=== PATIENT | male | born 1990 | race Caucasian/White ===

== ENCOUNTER 2019-11-21 17:26 | Inpatient (IN) | payer OTHER ==
[~2019-11-21] VITALS: Ht 185.4 cm; Wt 90.7 kg
[2019-11-21 17:26] VITALS: BP 135/97
[2019-11-21] MEDS ORDERED: SOLU-MEDROL ONE (17:31)
[2019-11-21] MEDS ORDERED: EPINEPHrine ONE (17:32)
[2019-11-21] MEDS ORDERED: MAGNESIUM SULFATE 50 ML IV ONE (17:32)
[2019-11-21] MEDS ORDERED: ATROVENT IH ONE (17:33)
[2019-11-21] MEDS ORDERED: DECADRON ONE (17:33)
[2019-11-21] MEDS ORDERED: ATROVENT IH STA (17:35)
[2019-11-21] MEDS ORDERED: VENTOLIN IH STA ×2 (17:35)
[2019-11-21] MEDS ORDERED: EPINEPHrine SQ STA (17:35)
[2019-11-21] MEDS ORDERED: MAGNESIUM SULFATE 50 ML IV STA (17:35)
[2019-11-21] MEDS ORDERED: DECADRON IH STA (17:35)
[2019-11-21] MEDS ORDERED: SOLU-MEDROL IV STA (17:35)
[2019-11-21 17:48] LABS: BASOPHIL % 0.2 % (0.0-0.2); EOSINOPHIL # 0.1 10^3/uL (0.0-0.2); EOSINOPHIL % 0.9 % (0.0-5.0); LYMPHOCYTES # 2.67 10^3/uL1 (1.0-4.8); LYMPHOCYTES % 46.7 % (24.0-44.0); MEAN CORP HGB 29.1 pg (26-34); MONOCYTES # 0.4 10^3/uL (0.3-0.8); MONOCYTES % 7.5 % (5.0-12.0); NEUTROPHIL # 2.6 10^3/uL (1.8-7.7); NEUTROPHILS % 44.5 % (41.0-85.0); PLATELET COUNT 313 10^3/uL (150-400)
[2019-11-21] MEDS ORDERED: NS 1000ML 1,000 ML IV STA (17:48)
--- NOTE | 2019-11-21 17:48 | ER.PDOC ---
General Chief Complaint: Dyspnea/Respdistress Stated Complaint: ASTHMA ATTACK Time seen by MD: 17:45 Source: patient Exam Limitations: no limitations History of Present Illness Initial Comments Asthma attack, patient having difficulty breathing and wheezing for past few days worse today. Severity: severe Initiating Event: enviromental allergy Associated Symptoms: trouble breathing, shortness of breath, cough, chest t ightness Prior symptoms/Treatment: Similar symptoms previous Allergies: Coded Allergies: No Known Allergies (Unverified , 11/21/19) Past Medical History Medical History: asthma Social History Alcohol Use: occassionally Drug Use: marijuana Constitutional: no symptoms reported EENTM: no symptoms reported Respiratory: see HPI Cardiovascular: no symptoms reported Gastrointestinal: no symptoms reported Genitourinary: no symptoms reported All Other Systems: Reviewed and Negative Physical Exam General Appearance: alert, severe distress EENT: eyes nml, no nystagmus, ENT nml inspection, pharynx nml Neck: nml inspection, non-tender Respiratory: chest non-tender, respiratory distress, accessory muscle use Cardiovascular: Normal Peripheral Pulses, Regular Rate, Rhythm, No Edema, No Gallop, No JVD, No Murmur, Tachycardia Abdomen: non-tender, no organomegaly Skin: Normal Color, Warm/Dry Extremities: non-tender, nml ROM, no pedal edema NEURO/PSYCH: oriented x 3, CN's nml as tested, motor nml, sensation nml, mood/affect nml Results/Orders Results/Orders Orders - KENNEDI BRAVO MD Albuterol Sulfate (Ventolin) (11/21/19 17:35) Albuterol Sulfate (Ventolin) (11/21/19 17:35) Ipratropium [place] (Atrovent) (11/21/19 17:35) Dexamethasone Sodium Phosphate (Decadron (11/21/19 17:35) Methylprednisolone Sod Succ (Solu-Medrol (11/21/19 17:35) Magnesium 2 Gm/Water 50ml (Magnesium Sul (11/21/19 17:35) Epinephrine (Epinephrine) (11/21/19 17:35) Cbc With Auto Diff (11/21/19 17:35) Comprehensive Metabolic Panel (11/21/19 17:35) Creatine Kinase (11/21/19 17:35) Creatine Kinase Mb (9/26/20 17:35) Troponin I (11/21/19 17:35) Xr Chest 1v (11/21/19 17:35) Ekg-Routine (11/21/19 17:35) Arterial Blood Gas (11/21/19 17:35) Probnp B-Type Pci Security Consultant (11/21/19 17:44) D-Dimer (11/21/19 17:44) PT (11/21/19 17:44) Partial Thromboplastin Time. (11/21/19 17:44) Vital Signs Date Time Temp Pulse Resp B/P (MAP) Pulse Ox O2 Delivery O2 Flow Rate FiO2 11/21/19 17:26 98.2 154 20 86 EKG/XRAY/CT/US EKG Comments: Sinus tachycardia XRAY: chest (No active disease) ER DEPARTURE Departure Time of Disposition: 19:13 Disposition: 09 ADMITTED INPATIENT Impression: Primary Impression: Asthma with status asthmaticus Additional Impressions: Acute respiratory failure Dyspnea Condition: Stable Duration or Time Spent with Pa: 60 min Justification of Admit/Observ Is this patient coming directl: No *Level of Care/Services Provid: ER Admit Criteria Met: YES Justification Content JUSTIFICATION FOR ADMISSION Instructions 1. Open link in ED01 Browser. [email or web address] 2. Copy and paste data needed to meet the Admit Criteria. 3. Modify and document the needful data to meet the Admit Criteria. Critical Care Note Total Time (mins): 60 Problem Qualifiers Primary Impression: Asthma with status asthmaticus Asthma severity: moderate Asthma persistence: persistent Qualified Codes: J45.42 - Moderate persistent asthma with status asthmaticus Additional Impressions: Acute respiratory failure Respiratory failure complication: hypoxia Qualified Codes: J96.01 - Acute respiratory failure with hypoxia Dyspnea Dyspnea type: acute respiratory distress Qualified Codes: R06.03 - Acute respiratory distress KENNEDI BRAVO MD Nov 21, 2019 17:48
--- NOTE | 2019-11-21 17:56 | PCM.EKG ---
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
[2019-11-21 18:08] LABS: ABG PCO2 40.5 mmHg (35.0-45.0); ABG PH 7.354 (7.350-7.450); BE(B) -3.2 mmol/L (-2.0-2.0); HCO3act 22.1 mmol/L (22.0-26.0); pO2 56.3 mmHg (80.0-100.0)
[2019-11-21 18:21] LABS: ALANINE AMINOTRANSFERASE(ML) 39 U/L (12-78); ALKALINE PHOSPHATASE 89 U/L (50-136); ASPARTATE AMINO TRANSFERASE 27 U/L (0-35); CALCIUM 9.1 mg/dL (8.4-10.5); CARBON DIOXIDE 27.1 mmol/L (20.0-32); GLUCOSE 131 mg/dL (70-110)
--- NOTE | 2019-11-21 18:48 | DIREP ---
PROCEDURE:CHEST 1 VIEW COMPARISON:None. INDICATIONS:Shortness of breath FINDINGS: LUNGS/PLEURA:Mild and diffuse interstitial prominence both lungs. No consolidation or effusion detected. No pneumothorax VASCULATURE:Normal. Unremarkable pulmonary vasculature. CARDIAC:Normal. No cardiac silhouette abnormality or cardiomegaly. MEDIASTINUM:Normal. No visible mass or adenopathy. BONES:Normal. No fracture or visible bony lesion. OTHER:Negative. CONCLUSION:Mild interstitial prominence both lungs, no focal infiltrate or effusion. No pneumothorax. Dictated by: Hernan Arrieta MD on 11/21/2019 at 06:45 PM
--- NOTE | 2019-11-21 18:53 | NUR ---
MAG SULFATE PT HAD 50ML MAG SULFATE HUNG PRIOR TO THIS NURSE'S ARRIVAL. THE MED WAS NOT ACKNOWLEDGED BY THE PREVIOUS SHIFT. ONE LITER OF NS WAS ALSO INITIATED PRIOR TO THIS SHIFT AND NOT ACKNOWLEDGED. THIS NURSE SALINE LOCKED THE PT AT THIS TIME AFTER SEEING THE MEDS HAVE BEEN INFUSED.
[2019-11-21 19:03] VITALS: BP 110/68
[2019-11-21] MEDS ORDERED: HNS 1000ML/KCL 20MEQ 1,000 ML IV STA (19:21)
[2019-11-21] MEDS ORDERED: HNS 1000ML/KCL 20MEQ 1,000 ML ONE (20:55)
[2019-11-21] MEDS ORDERED: COMBIVENT RESPIMAT 20-100 MCG IH PRN (21:00)
[2019-11-21] MEDS: DUO 0.5-3(2.5) MG/3 ML IH SCH (21:00)
--- NOTE | 2019-11-21 21:05 | NUR ---
MEDSURG PT TAKEN TO MEDSURG VIA WHEELCHAIR AT THIS TIME. REPORT GIVEN TO YANIQUE SEWELL.
[2019-11-21 21:20] VITALS: BP 115/72
--- NOTE | 2019-11-21 21:30 | NUR ---
Received pt from Ed via wheel chair. 02 on 3 liters.02 sats 95%. Pt placed on cont pulse ox. Admission complete. Medications given as ordered. No distress noted at this time
[2019-11-21] MEDS ORDERED: SOLU-MEDROL IV SCH (22:00)
[2019-11-21] MEDS ORDERED: TYLENOL PO PRN (23:00)
[2019-11-21] MEDS: SYMBICORT 160-4.5 MCG INHALER IH SCH (23:00)
[2019-11-21] MEDS: NS 1000ML 1,000 ML IV SCH (23:00)
[2019-11-21] MEDS ORDERED: KCL 20MEQ/100ML 200 ML IV SCH (23:00)
[2019-11-21] MEDS ORDERED: ULTRAM PO PRN (23:00)
--- NOTE | 2019-11-22 00:20 | PCM.HP ---
HISTORY & PHYSICAL HISTORY & PHYSICAL DATE OF ADMISSION: 11/21/19 TIME: 10:15pm CHIEF COMPLAINT: SOB, cough, and wheezing HISTORY OF PRESENT ILLNESS: Mr Murcia is a 29yo WM who presents to [facility] ED complaining of worsening SOB, cough (productive of yellowish-white sputum), and wheezing for the past several days. Patient states that he ran out of his home Advair 3 weeks ago and has been using his Albuterol inhaler more frequently, but it just "has not been working" to control his symptoms. Patient also states that he's been trying to quit smoking, but had a "relapse" 2-3 days ago in which he "binge smoked" 1.5-2 packs in 2 days. Patient feels that this is what triggered his current asthma attack. Upon arrival here to the ED, patient was noted to be in "severe respiratory distress" with labored breathing, nasal flaring, pursed lips, tachypneic, and hypoxic (O2 sats 60% RA per EMS) with usage of his accessory muscles of respiration. Patient was started on aggressive Respiratory Protocol with Breathing Treatments, supplemental oxygen, and steroids. Per my discussion with the ED physician, patient was given Heliox Tx and due to his increased work of breathing with clinical deterioration, there was consideration for possible intubation of the patient. However, he improved with the Heliox Tx and was able to be weaned down on his oxygen requirements. Currently at this time, patient is feeling "much better" with less respiratory distress on 3L O2 via NC. He reports no further chest "tightness" and denies having any fever or chills. PAST MEDICAL HISTORY: Asthma (Dx'd when Pt was a child) PAST SURGICAL HISTORY: Deviated Nasal Septum Surgery with Removal of a Nasal Polyp, Tibial Plateau Fracture Repair in 2017 SOCIAL HISTORY: Pt previously smoked 1ppd for 8 years, but has been trying to quit since last month. He drinks alcohol maybe 2x per week, and also admits to using marijuana maybe 2x per week. Patient currently works for the [employer]. FAMILY HISTORY: Mother alive at age 54 with Diabetes. Father alive at age 59 with HTN, obesity, and Hypothyroidism. ALLERGIES: NKDA HOME MEDICATIONS: See Home Med Rec REVIEW OF SYSTEMS: See HPI above. All other ROS negative including constitutional, eyes, ears, nose, throat, respiratory, cardiovascular, gastrointestinal, genitourinary, musculoskeletal, skin, neurological, psychiatric, and lymphatic. PHYSICAL EXAMINATION: VITAL SIGNS: T 98.2, HR 94 (was 154), RR 20 (was 40), BP 110/68, O2 sat 94% 3L NC GENERAL: Resting comfortably in NAD. No family or friends present at bedside. HEENT: NC/AT. PERRLA. EOMI. MMM. Neck is supple. LUNGS: BL diffuse expiratory wheezes. Tachypneic with minimal usage of his accessory muscles of respiration. HEART: Normal S1S2. No murmurs, rubs, gallops, or thrills. ABDOMEN: Soft. ND. NTTP. No rebound or guarding. Normal BS throughout. EXTREMITIES: No pitting edema. Moving all 4 extremities equally and completely off the bed. SKIN: No obvious rashes or open cuts. NEUROLOGIC: AAOx3. Sensation intact. Gait was not assessed at this time. LABORATORY DATA: Reviewed and significant for K 3.4, Gluc 131, TPN <0.02, D-dim 0.49, Hgb 16.7, ABG 7.354/40.5/56.3 IMAGING STUDIES: 1) CXR: Mild interstitial prominence both lungs. No focal infiltrate or effusion. No pneumothorax. ASSESSMENT / PLAN: 1) Acute Hypoxemic Respiratory Failure: Continue supportive care. Patient appears to be improving. Monitor closely. 2) Acute Asthma Exacerbation: Continue Br Tx's, O2 PRN, Solumedrol, Mucinex for cough, and Symbicort (since the Hospital does not have Advair currently). Patient would benefit from seeing a Field Attendant on DC and having a PFT done since he has never had one. Given his Hx of Tobacco usage, it is more likely that he has COPD rather than Asthma. 3) Prior COVID-19 Infection: Patient states that he had symptoms back in April but was never tested. He recovered and had the "Antibody Test" in June which he then tested positive for. Will check another COVID-19 test now as well as Influenza A / B. 4) Mild Hyperglycemia: Will check a HgbA1c. Would expect the Glucose to be elevated while on Steroid Tx. 5) Tobacco Abuse: Pt has been counseled and encouraged to quit. 6) Marijuana Abuse: Pt has been counseled and encouraged to quit. 7) GI and DVT prophylaxis: Will start Protonix and Lovenox. CHIRINOS,PILLO MD Nov 22, 2019 00:20
[2019-11-22 00:44] VITALS: BP 102/59
[2019-11-22] MEDS: DUO 0.5-3(2.5) MG/3 ML IH SCH ×3 (01:00→09:00)
[2019-11-22] MEDS ORDERED: SOLU-CORTEF ONE (01:21)
[2019-11-22] MEDS ORDERED: TYLENOL PO PRN (01:30)
[2019-11-22] MEDS: MUCINEX PO SCH ×3 (02:01→21:02)
[2019-11-22] MEDS: LOVENOX SQ SCH ×2 (02:02→21:03)
[2019-11-22] MEDS: COMBIVENT RESPIMAT 20-100 MCG IH SCH ×6 (02:02→19:58)
[2019-11-22] MEDS: SOLU-MEDROL IV SCH ×3 (02:10→17:04)
[2019-11-22 03:45] VITALS: BP 102/66
[2019-11-22 05:46] LABS: BASOPHIL % 0.5 % (0.0-0.2); LYMPHOCYTES # 0.67 10^3/uL1 (1.0-4.8); LYMPHOCYTES % 15.7 % (24.0-44.0); MEAN CORP HGB 29.4 pg (26-34); MONOCYTES # 0.2 10^3/uL (0.3-0.8); MONOCYTES % 3.5 % (5.0-12.0); NEUTROPHIL # 3.4 10^3/uL (1.8-7.7); NEUTROPHILS % 80.1 % (41.0-85.0); PLATELET COUNT 259 10^3/uL (150-400); RED CELL DISTRIBUTION WIDTH 12.2 % (11.5-14.5)
[2019-11-22 06:08] LABS: CALCIUM 8.7 mg/dL (8.4-10.5); CARBON DIOXIDE 25.9 mmol/L (20.0-32)
--- NOTE | 2019-11-22 06:30 | NUR ---
CRITICAL LAB NOTIFIED DR CHIRINOS OF PROCALCITONIN 1.55. DR CHIRINOS STATED THAT SHE WOULD PUT IN ORDER FOR ANTIBIOTICS.
[2019-11-22 07:50] VITALS: BP 111/72
[2019-11-22] MEDS ORDERED: NS 250ML 250 ML IV ONE (08:46)
[2019-11-22] MEDS: PROTONIX PO SCH (08:53)
[2019-11-22] MEDS: ZITHROMAX 500 MG in NS 250ML 250 ML IV SCH (08:54)
[2019-11-22] MEDS: SYMBICORT 160-4.5 MCG INHALER IH SCH ×2 (09:00→21:44)
[2019-11-22 09:48] LABS: APPEARANCE,URINE CLEAR (CLEAR); BILIRUBIN,URINE NEGATIVE (NEGATIVE); UA COLOR YELLOW (YELLOW)
[2019-11-22 09:49] LABS: UROBILINOGEN,URINE NORMAL (NEGATIVE)
--- NOTE | 2019-11-22 09:50 | NUR ---
UA SAMPLE COLLECTED AND SENT TO LAB.
[2019-11-22] MEDS ORDERED: ZOFRAN IV PRN (10:30)
--- NOTE | 2019-11-22 10:38 | PRM.PN ---
PROGRESS NOTE S/O/A/P DATE: 11/22/19 TIME: 9:30am SUBJECTIVE: Feels better today with less SOB, cough, and wheezing. Some nausea earlier but no vomiting or abdominal pain. Remains afebrile. OBJECTIVE: PHYSICAL EXAMINATION: VITAL SIGNS: T 98.8, HR 77, RR 20, BP 111/72, O2 sat 95% 3L NC GENERAL: Resting comfortably in NAD. No family or friends present at bedside. HEENT: NC/AT. PERRLA. EOMI. MMM. Neck is supple. LUNGS: BL diffuse expiratory wheezes (improved). No usage of his accessory muscles of respiration today. HEART: Normal S1S2. No murmurs, rubs, gallops, or thrills. ABDOMEN: Soft. ND. NTTP. No rebound or guarding. Normal BS throughout. EXTREMITIES: No pitting edema. Moving all 4 extremities equally and complete ly off the bed. SKIN: No obvious rashes or open cuts. NEUROLOGIC: AAOx3. Sensation intact. Gait was not assessed at this time. LABORATORY DATA: Reviewed and significant for Gluc 130, WBC 4.3, HgbA1c 5.9, PCT 1.55, Flu A/B neg IMAGING STUDIES: No new studies today ASSESSMENT / PLAN: 1) Acute Hypoxemic Respiratory Failure: Improving. Will try to wean off O2 today as tolerated. Continue supportive care and monitor closely. 2) Acute Asthma Exacerbation: Continue Br Tx's, O2 PRN, Solumedrol, Mucinex for cough, and Symbicort. Patient would benefit from seeing a Rotor Casting Machine Operator on DC and having a PFT done since he has never had one. Given his Hx of Tobacco usage, it is more likely that he has COPD than Asthma. 3) Prior COVID-19 Infection: Patient states that he had symptoms back in April but was never tested. He recovered and had the "Antibody Test" in June which he then tested positive for. Another COVID-19 test was checked in ED and is still pending. Flu is negative. 4) ? Acute Bronchitis: Pt has no true signs of "Pneumonia" on CXR but his PCT is 1.55. Will start him on Azithromycin for now and check a CT chest to further evaluate. Will follow up the Sputum Cx results. 5) Mild Hyperglycemia: HgbA1c is 5.9. Pt is not diabetic. This is due to the Steroids. 6) Tobacco Abuse: Pt has been counseled and encouraged to quit. 7) Marijuana Abuse: Pt has been counseled and encouraged to quit. 8) GI and DVT prophylaxis: Continue Protonix and Lovenox. KELVIN CHIRINOS MD Nov 22, 2019 10:38
[2019-11-22] MEDS ORDERED: FLUT1DIS3 IH (11:02)
[2019-11-22] MEDS ORDERED: ALBU18HF IH (11:02)
[2019-11-22] MEDS ORDERED: ALBU2.5V2 IH (11:02)
[2019-11-22] MEDS ORDERED: PRED20TA PO (11:19)
[2019-11-22] MEDS ORDERED: LEVO5TAB29 PO (11:19)
--- NOTE | 2019-11-22 11:19 | NUR ---
medications reconciled PER Pt REQUEST CALLED [facility] IN [address] [place], [place] CONFIRMED ORDER OF PREDNISONE 40 MG DAILY FOR 4 DAYS PRESCRIBED ON FOR 4 DAYS
--- NOTE | 2019-11-22 11:40 | NUR ---
CTA REFUSED WHEN RADIOLOGIST BR[place]N WAS HERE FOR Pt TO TAKE FOR CTA, Pt REFUSED CTA BECAUSE OF COST, NOTIFIED DR CHIRINOS, SO ORDER FOR CTA CANCELLED PER ORDER OF DR CHIRINOS.
[2019-11-22 12:00] VITALS: BP 113/65
[2019-11-22 17:01] VITALS: BP 105/68
[2019-11-22] MEDS: NS 1000ML 1,000 ML IV SCH (17:04)
--- NOTE | 2019-11-22 17:27 | NUR ---
WHEN GIVING PT HIS 1700 MDI AND ASKED HIM TO VERIFY NAME AND BIRTHDAY, HE STATED HIS BIRTHDAY 1990, I ASKED HIM TO REPEAT HIS BIRTHDAY BECAUSE IT WAS NOT THE SAME DATE IN COMPUTER, PT LOOKED AT HIS ID BAND AND SAID THAT IT WAS NOT THE RIGHT DATE, REPORTED THIS TO George VELASCO RN
[2019-11-22 19:50] VITALS: BP 105/82
[2019-11-23] MEDS: SOLU-MEDROL IV SCH ×2 (00:39→08:17)
[2019-11-23] MEDS: COMBIVENT RESPIMAT 20-100 MCG IH SCH ×4 (00:40→13:00)
[2019-11-23 00:42] VITALS: BP 110/61
[2019-11-23] MEDS: NS 1000ML 1,000 ML IV SCH ×2 (01:40→05:14)
[2019-11-23 05:16] VITALS: BP 109/61
[2019-11-23 06:22] LABS: BASOPHIL % 0.1 % (0.0-0.2); LYMPHOCYTES # 1.02 10^3/uL1 (1.0-4.8); LYMPHOCYTES % 9.6 % (24.0-44.0); MEAN CORP HGB 29.6 pg (26-34); MONOCYTES # 0.3 10^3/uL (0.3-0.8); MONOCYTES % 3.2 % (5.0-12.0); NEUTROPHIL # 9.3 10^3/uL (1.8-7.7); PLATELET COUNT 254 10^3/uL (150-400); RED CELL DISTRIBUTION WIDTH 12.1 % (11.5-14.5)
[2019-11-23 06:34] LABS: CALCIUM 8.7 mg/dL (8.4-10.5); CARBON DIOXIDE 28.2 mmol/L (20.0-32)
[2019-11-23 07:55] VITALS: BP 110/65
[2019-11-23] MEDS: ZITHROMAX 500 MG in NS 250ML 250 ML IV SCH (08:16)
[2019-11-23] MEDS: MUCINEX PO SCH (08:17)
[2019-11-23] MEDS: PROTONIX PO SCH (08:17)
[2019-11-23] MEDS: SYMBICORT 160-4.5 MCG INHALER IH SCH (09:00)
--- NOTE | 2019-11-23 10:50 | NUR ---
DISCHARGE PLAN CM VISITED WITH AMBREEN CHANEL REGARDING PATIENT NEEDS. PATIENT LIVES AT HOME WITH HIS SIBLING. HE IS VERY INDEPENDENT OF ADLS. HE DOES NOT HAVE A PCP. CM NOTIFIED RAFFI THAT PT WILL NEED TO BEE SCREENED REGARDING PAYOR STATUS. CM LEFT A $4 MED LIST ON FRONT OF THE PATIENTS CHART. CM ALSO NOTIFIED THAT IF PT NEEDS 02 ON D/C IT IS 120.00 UMA[employer]A PAY MONTHLY THROUGH [employer] OR PT CAN CONTACT [email or web address] AND WORK SOMETHING OUT. DISCHARGE PLAN IS FOR PATIENT TO D/C BACK HOME TO ROUTINE CARE. CM WILL MONITOR NEEDS UNTIL D/C.
[2019-11-23 11:42] VITALS: BP 117/77
[2019-11-23] MEDS ORDERED: AZIT500T4 PO (12:17)
--- NOTE | 2019-11-23 13:21 | NUR ---
DISCHARGE Pt was given discharge paperwork and was educated on asthma exacerbation, new medication, home medications, s/s of blood clots, s/s of an asthma attack, the need to stay quarantined until he receives the results of his Covid testing and after if he is positive, and serious complications that he should see emergency medical care for. Pt was escorted off the unit via wheelchair by Joelle Pandey RN with no obvious s/s of complications and no visible distress. Pt was ambulated into a personal vehicle with a friend and care of Pt was relinquished at this time.
[2019-11-23 14:11] VITALS: BP 117/77
--- NOTE | 2019-11-25 21:36 | PRM.DC ---
DISCHARGE SUMMARY Y DATE OF ADMISSION: 11/21/19 DATE OF DISCHARGE: 11/23/19 FINAL DISCHARGE DIAGNOSES: 1) Acute Hypoxemic Respiratory Failure: Resolved. Pt is now doing well on Room Air. 2) Acute Asthma Exacerbation: Improved with Br Tx's, O2 PRN, Solumedrol, Mucinex, and Symbicort. Patient would benefit from establishing with a Boom Cat Operator in future and having a PFT done since he has never had one. Given his Hx of Tobacco usage, it is very likely that he actually has COPD. 3) Prior COVID-19 Infection: Patient states that he had symptoms back in April but was never tested. He recovered and had the "Antibody Test" in June which he then tested positive for. Another COVID-19 test was checked here while patient was in the ED, but the results are still pending at this time. Patient will need to follow up with his PCP for these results, and was ins tructed to self-quarantine until the results are available. 4) Acute Bronchitis: Pt actually had no true signs of "Pneumonia" on CXR but his PCT was 1.55. A CT chest was ordered to further evaluate, but patient declined to have the CT done due to concerns with the cost. He was started on Azithromycin and showed a clinical improvement. Flu was negative. 5) Mild Hyperglycemia: Due to the steroids. HgbA1c was 5.9 so Pt is not diabetic. 6) Tobacco Abuse: Pt has been counseled and encouraged to quit. 7) Marijuana Abuse: Pt has been counseled and encouraged to quit. CONSULTS: None HISTORY & BRIEF HOSPITAL COURSE: Mr Murcia is a 29yo WM who presented to [facility] ED complaining of worsening SOB, cough, and wheezing for the past several days. Pt was found to be in severe respiratory distress and was very close to being intubated while in the ED. However, he luckily responded to the medical therapy and showed a clinical improvement. Patient therefore was admitted to the hospital for further care and treatment of his acute asthma exacerbation. He continued to do well and was eventually weaned off oxygen. On the final day of admission, patient reported feeling "much better' and requested to be discharged home because he was concerned about the cost of remaining in hospital any longer. Patient did agree to establish care with a PCP and follow up in 3-5 days. PHYSICAL EXAMINATION: VITAL SIGNS: T 98.4, HR 66, RR 18, BP 110/65, O2 sat 92% on RA GENERAL: Resting comfortably in NAD. No family or friends present at bedside. HEENT: NC/AT. BALDEV. EOMI. MMM. Neck is supple. LUNGS: CTAB. No wheezing noted today. No usage of his accessory muscles of respiration today. HEART: Normal S1S2. No murmurs, rubs, gallops, or thrills. ABDOMEN: Soft. ND. NTTP. No rebound or guarding. Normal BS throughout. EXTREMITIES: No pitting edema. Moving all 4 extremities equally and completely off the bed. SKIN: No obvious rashes or open cuts. NEUROLOGIC: AAOx3. Sensation intact. Gait was not assessed at this time. DISCHARGE CONDITION: Stable DISPOSITION: D/C'd home MEDICATIONS: See Med Rec INSTRUCTION TO PT: 1) Diet: Regular as tolerated 2) Activity: As tolerated 3) Stop smoking cigarettes and marijuana. FOLLOW UP: 1) PCP in 3-5 days, sooner if needed >35min was spent with patient at bedside today and in preparation of the DC paperwork. All questions / concerns were sought and addressed. Patient did voice understanding and agreement with the current POC. KELVIN CHIRINOS MD Nov 25, 2019 21:35
== END 2019-11-23 13:20 | disposition home or self-care (01) | DRG 177 ==
LOC: ER 17:26 → MS 20:18 → OBSVTOIN 22:46 → EDBD 22:46
PROVIDERS: ADMIT Family Medicine; ATTEND Family Medicine
DX: U07.1 COVID-19 (principal); J96.01 Acute respiratory failure with hypoxia; J45.902 Unspecified asthma with status asthmaticus; J44.0 Chronic obstructive pulmonary disease with (acute) lower respiratory infection; T38.0X5A Adverse effect of glucocorticoids and synthetic analogues, initial encounter; F17.200 Nicotine dependence, unspecified, uncomplicated; R73.9 Hyperglycemia, unspecified; F12.10 Cannabis abuse, uncomplicated; J20.8 Acute bronchitis due to other specified organisms; Z82.49 Family history of ischemic heart disease and other diseases of the circulatory system; Z86.19 Personal history of other infectious and parasitic diseases; Z83.3 Family history of diabetes mellitus; Z71.6 Tobacco abuse counseling; Z71.51 Drug abuse counseling and surveillance of drug abuser; Y92.89 Other specified places as the place of occurrence of the external cause
CPT/HCPCS: 36415; 36600; 71045; 80053; 80307; 81003; 82550; 82553; 82803; 83036; 83735; 83880; 84100; 84145; 84484; 85025; 85379; 85610; 85730; 87040; 87070; 87086; 87205; 87635; 87804; 93005; 94799; 99291; G0378; J0171; J0456; J1100; J1650; J1720; J2930; J3475; J7030; J7050; J7644; J3480